=== PATIENT | female | born 1990 | race Caucasian/White ===

== ENCOUNTER → 2019-08-17 14:17 | Outpatient (CLI) | payer MEDICAID, SELFPAY ==
[2019-08-17 15:08] LABS: Basophils # 0.1 K/mm3 (0-0.2); Basophils % 0.5 % (0.1-2.0); Eosinophils # 0.2 K/mm3 (0.0-0.4); Eosinophils % 2.1 % (0.1-12.0); Hematocrit 46.2 % (37.0-47.0); Hemoglobin 15.1 g/dL (12.2-16.2); Lymphocytes # 3.2 K/mm3 (0.7-4.5); Lymphocytes % 28.8 % (10-50); Mean Corpuscular HGB Conc 32.8 g/dL (31.8-35.4); Mean Corpuscular Hemoglobin 31.4 pg (27.0-31.2); Mean Corpuscular Volume 95.7 fl (81-99); Mean Platelet Volume 9.2 fl (7.4-10.4); Monocytes # 0.4 K/mm3 (0.1-1.0); Monocytes % 3.9 % (1.7-9.3); Neutrophils # 7.1 K/mm3 (1.8-7.8); Neutrophils % 64.6 % (37.0-80.0); Platelet Count 235 K/mm3 (142-424); Red Blood Count 4.82 M/mm3 (4.20-5.40); Red Cell Distribution Width 13.5 % (11.5-17.5); White Blood Count 10.9 K/mm3 (4.8-10.8)
[2019-08-17 15:22] LABS: Urine Pregnancy, HCG Qual. Negative (Negative)
[2019-08-17 15:54] LABS: Anion Gap 13.1 mEq/L (5-15); Blood Urea Nitrogen 8 mg/dL (7-18); Calcium 9.8 mg/dL (8.5-10.1); Carbon Dioxide 29 mmol/L (21.0-32.0); Chloride 103 mmol/L (98-107); Creatinine,Serum 0.72 mg/dL (0.55-1.02); Estimated Glomerular Filt Rate 97 ml/min (>60); GFR (African American) 118 ML/MIN (>60); Glucose 120 mg/dL (74-106); Potassium 4.1 mmoL/L (3.5-5.1); Sodium 141 mmol/L (136-145)
== END ==
PROVIDERS: Visit Provider Orthopaedic Surgery
DX: M25.571 Pain in right ankle and joints of right foot; Z01.818 Encounter for other preprocedural examination
CPT/HCPCS: 36415; 80048; 81025; 85025

== ENCOUNTER → 2019-08-19 12:06 | Outpatient (CLI) | payer MEDICAID, SELFPAY | PROVIDERS: Visit Provider Orthopaedic Surgery | DX: M25.571 Pain in right ankle and joints of right foot (principal) | CPT/HCPCS: 36415; 86850 ==

== ENCOUNTER → 2020-05-26 11:11 | Outpatient (CLI) | payer MEDICAID, SELFPAY ==
[2020-05-26 11:59] LABS: Basophils # 0.1 K/mm3 (0-0.2); Basophils % 0.6 % (0.1-2.0); Eosinophils # 0.4 K/mm3 (0.0-0.4); Eosinophils % 4.3 % (0.1-12.0); Hematocrit 45.6 % (37.0-47.0); Hemoglobin 15.5 g/dL (12.2-16.2); Lymphocytes # 3.8 K/mm3 (0.7-4.5); Mean Corpuscular HGB Conc 33.9 g/dL (31.8-35.4); Mean Corpuscular Hemoglobin 31.7 pg (27.0-31.2); Mean Corpuscular Volume 93.5 fl (81-99); Mean Platelet Volume 8.3 fl (7.4-10.4); Monocytes # 0.4 K/mm3 (0.1-1.0); Monocytes % 4.5 % (1.7-9.3); Neutrophils # 4.6 K/mm3 (1.8-7.8); Neutrophils % 49.7 % (37.0-80.0); Platelet Count 210 K/mm3 (142-424); Red Blood Count 4.88 M/mm3 (4.20-5.40); Red Cell Distribution Width 13.7 % (11.5-17.5); White Blood Count 9.2 K/mm3 (4.8-10.8)
[2020-05-26 12:12] LABS: Chloride 98 mmol/L (98-107); Potassium 4.4 mmoL/L (3.5-5.1); Sodium 138 mmol/L (136-145)
[2020-05-26 12:15] LABS: Alanine Aminotransferase 27 U/L (12-78); Albumin Level 4.5 g/dl (3.5-5.0); Albumin/Globulin Ratio 1.3 (1.1-1.8); Alkaline Phosphatase 52 U/L (38-126); Anion Gap 13.4 mEq/L (5-15); Aspartate Amino Transferase 27 U/L (14-36); Bilirubin,Total 0.6 mg/dl (0.2-1.3); Blood Urea Nitrogen 10 mg/dl (7-17); Calcium 9.5 mg/dl (8.4-10.2); Carbon Dioxide 31 mmol/L (22.0-30.0); Cholesterol 218 mg/dl (140-200); Estimated Glomerular Filt Rate 85 ml/min (>60); GFR (African American) 103 ML/MIN (>60); Globulin 3.4 g/dL (1.3-3.2); Glucose 91 mg/dl (74-100); Total Protein,Serum 7.9 g/dl (6.3-8.2); Triglycerides 108 mg/dl (30-150); VLDL Cholesterol 22 mg/dL (0-40)
[2020-05-26 12:16] LABS: Chol/HDL Ratio 3.2 (1-3.5); HDL Cholesterol 68 mg/dl (40-60)
[2020-05-26 12:26] LABS: Direct LDL Cholesterol 125.66 mg/dL (100-129)
[2020-05-26 12:46] LABS: Thyroid Stimulating Hormone 3.17 uIU/mL (0.465-4.68)
[2020-06-01 14:01] LABS: Amphetamine/Metha Screen,Urine Negative ng/ml (<1000)
[2020-06-01 14:18] LABS: Benzodiazepines Screen,Urine Positive ng/ml (<200); Cannabinoid Screen,Urine Negative ng/ml (<50)
[2020-06-01 14:19] LABS: Barbiturates Screen,Urine Negative ng/ml (<200); Cocaine Screen,Urine Negative ng/ml (<300)
[2020-06-01 14:20] LABS: Methadone Screen,Urine Negative ng/ml (<300)
[2020-06-01 14:21] LABS: Opiate Screen,Urine Negative ng/ml (<300); Phencyclidine Screen,Urine Negative ng/ml (<25)
== END ==
PROVIDERS: Visit Provider Nurse Practitioner Psychiatric/Mental Health
DX: F32.0 Major depressive disorder, single episode, mild (principal)
CPT/HCPCS: 36415; 80053; 80061; 80305; 84443; 85025

== ENCOUNTER 2020-06-27 19:40 | Emergency (ER) | payer MEDICAID, SELFPAY ==
[2020-06-27 19:49] VITALS: BP 140/80; PULSE 78; RESP 16; TEMP 36.7; O2SAT 100; BMI 28.3
[2020-06-27 19:55] VITALS: BP 140/80; PULSE 78; RESP 16; TEMP 36.7; O2SAT 100; BMI 28.5
--- NOTE | 2020-06-27 20:03 | HMH.EDUTC ---
[facility] [place] Impression: GERD (gastroesophageal reflux disease) Qualifiers: Esophagitis presence: without esophagitis Qualified Code(s): K21.9 - Gastro-esophageal reflux disease without esophagitis Disposition: Home, Self-Care Condition on Discharge: Good Instructions: Gastroesophageal Reflux Disease (Alternative Therapy), DI for Gastroesophageal Reflux Disease (GERD), GERD Diet Additional Instructions: Do Not eat or drink 30min prior to bedtime Make sure to sit up at least 30minute to 1 hour after eating Avoid spicy and greasy foods that may irritated and upset your stomach Return if needed Straight to ER if any life threatening symptoms FOllow up with Family doctor you was given 2 weeks worth of medication make sure to follow up if medication is working for additional medication Prescriptions: Pantoprazole Sodium [Protonix 40mg tablet] 40 mg PO DAILY 14 Days #14 tab Transmission Status: Received by [id number] Referrals: Rio John [Primary Care Provider] - As needed Time of Disposition: 20:57 Medical Decision Making - Justyn Inquiry Pt receiving controlled substance: No Justyn was queried for this patient: No Vital Signs: 06/27/20 19:49 06/27/20 19:55 06/27/20 20:23 Temperature 98.1 F 98.1 F 98.1 F Temperature Source Oral Oral Pulse Rate 78 Pulse Rate [Right] 78 78 Respiratory Rate 16 16 16 Blood Pressure 140/80 Blood Pressure [Right Arm] 140/80 140/80 Blood Pressure Mean [Right Arm] 100 100 Blood Pressure Source [Right Arm] Automatic Cuff Automatic Cuff Blood Pressure Position [Right Arm] Sitting Sitting 02 Sat by Pulse Oximetry 100 100 Oxygen Delivery Method Room Air Room Air - Lab Data Lab results reviewed: Yes: I reviewed the patient's lab results. Lab Results 06/27/20 20:04: [facility] Negative Orders (Tests/Meds): ED MEDICATIONS Discontinued Medications Generic Name Dose Route Start Last Admin Trade Name Freq PRN Reason Stop Dose Admin Pantoprazole Sodium 40 mg 06/27/20 20:16 06/27/20 20:21 Protonix 40mg Tablet PO 06/27/20 20:17 40 mg ONCE ONE Administration [facility] [place] - General Stated complaint: Heart burn,MENDOZA,Diarrhea for 2 mo Time Seen by Provider: 06/27/20 20:03 Mode of Arrival: Ambulatory Source of Information: Patient Limitations: No Limitations Description of Symptoms (Recalled from Triage Doc. by RN): PT c/o heartburn, diarrhea for 2 months. Thought it was due to her medicine change. Advises shes just tired of it and thats what brought her in HEENT Symptoms (Recalled from RN notes): No Resp Symptoms (Recalled from RN notes): No Skin Symptoms (Recalled from RN notes): No MS Symptoms (Recalled from RN notes): No Functional Status (Recalled from RN notes): WNL - History of Present Illness Provider Complaint: Patient states that she has a history of GERD States that on and off for the last 2 months she has been having heartburn, diarrhea on and off and nausea States that she saw PCP and he changed her medication but it hasnt helped much and she is tired of it - Related Data Home Medications Medication Instructions Recorded Confirmed Mirtazapine [Remeron] 15 mg PO DAILY 06/27/20 06/27/20 hydrOXYzine HCL [Hydroxyzine HCl] 25 mg PO DAILY 06/27/20 06/27/20 Previous Rx's Medication Instructions Recorded Pantoprazole Sodium [Protonix 40mg 40 mg PO DAILY 14 Days #14 tab 06/27/20 tablet] Allergies Allergy/AdvReac Type Severity Reaction Status Date / Time Penicillins Allergy Verified 06/27/20 20:03 Sulfa (Sulfonamide Allergy Verified 06/27/20 20:03 Antibiotics) - Worker's Comp Is this a Worker's Comp case?: No [facility] History - Hepatitis A Screen Drug use history?: No High risk sexual behaviors?: No History of sexually transmitted infection?: No Currently employed?: No Childcare worker?: No Do you have indoor plumbing?: Yes Do you have electricity?: Yes Attestati
[2020-06-27 20:15] LABS: UTC Pregnancy Test, Urine Negative (Negative)
[2020-06-27 20:23] VITALS: BP 140/80; PULSE 78; RESP 16; TEMP 36.7; O2SAT 100
== END 2020-06-27 20:26 | disposition home or self-care (01) ==
LOC: ER 19:52 → UTC 19:53
PROVIDERS: Emergency Provider Nurse Practitioner; PCP Pediatrics
DX: K21.9 Gastro-esophageal reflux disease without esophagitis (principal); R19.7 Diarrhea, unspecified; Z88.0 Allergy status to penicillin; Z88.2 Allergy status to sulfonamides
CPT/HCPCS: 81025; 99201

== ENCOUNTER 2020-09-27 16:30 | Outpatient (RCR) | payer MEDICAID, SELFPAY | END 2020-09-27 16:35 | disposition home or self-care (01) | LOC: PT 16:30 | PROVIDERS: Visit Provider Orthopaedic Surgery | DX: M25.571 Pain in right ankle and joints of right foot (principal) | CPT/HCPCS: 97010; 97014; 97033; 97110; 97112; 97163; G0283 ==